=== PATIENT | male | born 1985 | race Caucasian/White ===

== ENCOUNTER → 2016-12-30 | Day surgery (SDC) | payer OTHER ==
--- NOTE | 2016-12-29 18:46 | MH ---
cc: TRAVIS BARRAGAN DATE OF ADMISSION 12/30/2016 HISTORY OF THE PRESENT ILLNESS A 31-year-old gentleman with chronic sinusitis and nasal obstruction for nasal sinus surgery including open septal reconstruction, turbinectomies and bilateral balloon and endoscopic sinus surgery. PAST MEDICAL HISTORY Unremarkable. PAST SURGICAL HISTORY Unremarkable. REVIEW OF SYSTEMS Unremarkable. FAMILY HISTORY Unremarkable. SOCIAL HISTORY Unremarkable. PHYSICAL EXAMINATION GENERAL: Well-appearing patient. No acute distress noted. HEENT: Exam reveals significant nasal septal deviation, mucopurulent exudate, chronic inflammation and turbinate hypertrophy. Oral cavity is clear. NECK: Soft and supple with no masses. LUNGS: Clear. HEART: Regular rate and rhythm. ABDOMEN: Soft and nontender. EXTREMITIES: Without cyanosis, clubbing or edema. NEUROLOGICAL: Alert, oriented, nonfocal neurologic exam. IMPRESSION Patient with chronic sinusitis and nasal obstruction for nasal sinus surgery. Instructed in method of surgery and possible complications, including anesthetic complications, cardiac difficulty, pulmonary difficulty, stroke or even . Surgical complications bleeding, infection, injury to orbit including blindness and diplopia, injury to brain including CSF leak, meningitis, brain abscess or even , in addition to septal perforation, dry nose, persistent sinusitis and some decreased sense of smell. The patient appeared to agree, accept and understand above-mentioned risks and benefits. In addition no guarantees or warranties regarding outcome will be given. We will therefore proceed with surgery. MD TAE Parham/SHAE /6:11 PM /6:41 PM
[~2016-12-30] VITALS: Ht 188 cm; Wt 122.9 kg
[~2016-12-30] MED LIST: ACETAMINOPHEN 1000 MG/100 ML VIAL IV ONE; ACETAMINOPHEN/HYDROcodone 325 MG/7.5 MG TAB PO PRN; ADDE10 PO; DO NOT ADM ANY ANTICOAGULANT DRUGS XX PRN; EPINEPHrine HCL (1:1000) 30 MG/30 ML VIAL ONE; INSULIN HUMAN REGULAR 1,000 UNITS/10 ML VIAL SQ PRN; LACTATED RINGER'S 1000 ML IV SCH; LIDOCAINE 1%/EPINEPHrine 1:100,000 SOLN 30 ML VIAL ONE; MEDR4PAK PO; METOPROLOL TARTRATE 25 MG TAB PO PRN; MORPHINE SULFATE 4 MG/ML INJ IV PUSH PRN; NEOSTIGMINE 3 MG/3 ML SYR IV ONE; OFLOXACIN 0.3% OPTH SOLN 5 ML BTL ONE; ONDANSETRON HCL 4 MG/2 ML VIAL IV PUSH ONE; ONDANSETRON HCL 4 MG/2 ML VIAL IV PUSH PRN; PREV15CA15 PO; PROPOFOL 200 MG/20 ML AMP IV ONE; SODIUM CHLORID 0.9% 500 ML IV SCH; VENTAER INH; fentaNYL CITRATE 250 MCG/5 ML AMP ONE
[2016-12-30 07:12] VITALS: BP 132/81; PULSE 71; RESP 18; TEMP 98; O2SAT 98
--- NOTE | 2016-12-30 10:00 | MP ---
cc: TRAVIS BARRAGAN DATE OF SURGERY 12/30/2016 PREOPERATIVE DIAGNOSES Nasal obstruction. Chronic sinusitis. PROCEDURE Open septal reconstruction, bilateral endoscopic frontal sinusotomy, bilateral endoscopic anterior and posterior ethmoidectomy, bilateral endoscopic maxillary antrostomy with removal of tissue, bilateral inferior turbinectomy, submucous resection. ANESTHESIA General anesthesia. ESTIMATED BLOOD LOSS Less than 100 cc. COMPLICATIONS No complications. OPERATING SURGEON Dr. Barragan OPERATION FOLLOWS Prepped and draped in the usual fashion. 1% Xylocaine with 1:100,000 epinephrine injected into nasal septum, middle meatus and inferior meatus bilaterally. 1:1000 adrenaline soaked pledgets were placed and then removed. Under endoscopic visualization, microdebrider was used to perform uncinectomy, anterior and posterior ethmoidectomy on the right side. Under endoscopic visualization, natural antrostomy identified, enlarged and polypoid tissue removed from it. Also using balloon as well as microdebrider, frontal sinus resection performed. A balloon dilation was initially performed and then the frontal sinus recess dissected with microdebrider removing bone and mucosa. A Telfa splint was placed in the right middle meatus at this time and attention turned to the left middle meatus. Under endoscopic visualization, uncinectomy performed, the natural antrostomy identified, enlarged with the microdebrider and polypoid tissue removed from it. Once this was achieved, the patient then had anterior and posterior ethmoidectomy performed with microdebrider under endoscopic visualization on the left side and natural frontal sinus recess dissection. Also balloon sinuplasty performed on the left side as well. Telfa splint placed in left middle meatus. Mucoperichondrial incision made on the left side, mucoperichondrial flap elevated. Significant amount of bone and cartilage removed to improve nasal airway and to reduce the nasal fracture. The mucoperichondrial flap was approximated. Inferior turbinate reduction submucosally was performed with the Coblator under direct and endoscopic visualization bilaterally with multiple insertions of the Coblator, probed with power Level IV. Minimal bleeding was noted. No packing placed. The patient tolerated the procedure well. MD TAE Parham/DAVID /9:33 AM /9:41 AM
[2016-12-30 11:00] VITALS: BP 141/83; PULSE 69; RESP 18; TEMP 97.7; O2SAT 97
== END | disposition home or self-care (01) ==
LOC: HSDC 06:11
PROVIDERS: ATTEND Specialist
DX: J32.9 Chronic sinusitis, unspecified (principal); J34.2 Deviated nasal septum; J34.3 Hypertrophy of nasal turbinates; J45.909 Unspecified asthma, uncomplicated
CPT/HCPCS: 00160; 30140; 30520; 31255; 31267; 31276; J0131; J0171; J2405; J2710; J3010

== ENCOUNTER 2017-05-22 10:13 | Emergency (ER) | payer OTHER ==
[~2017-05-22 10:13] MED LIST changes: -ACETAMINOPHEN 1000 MG/100 ML VIAL IV ONE; -ACETAMINOPHEN/HYDROcodone 325 MG/7.5 MG TAB PO PRN; -DO NOT ADM ANY ANTICOAGULANT DRUGS XX PRN; -EPINEPHrine HCL (1:1000) 30 MG/30 ML VIAL ONE; -INSULIN HUMAN REGULAR 1,000 UNITS/10 ML VIAL SQ PRN; -LACTATED RINGER'S 1000 ML IV SCH; -LIDOCAINE 1%/EPINEPHrine 1:100,000 SOLN 30 ML VIAL ONE; -METOPROLOL TARTRATE 25 MG TAB PO PRN; -MORPHINE SULFATE 4 MG/ML INJ IV PUSH PRN; -NEOSTIGMINE 3 MG/3 ML SYR IV ONE; -OFLOXACIN 0.3% OPTH SOLN 5 ML BTL ONE; -ONDANSETRON HCL 4 MG/2 ML VIAL IV PUSH ONE; -ONDANSETRON HCL 4 MG/2 ML VIAL IV PUSH PRN; -PROPOFOL 200 MG/20 ML AMP IV ONE; -SODIUM CHLORID 0.9% 500 ML IV SCH; -fentaNYL CITRATE 250 MCG/5 ML AMP ONE
[2017-05-22 10:25] VITALS: BP 128/77; PULSE 83; RESP 20; TEMP 98.3; O2SAT 98
[2017-05-22] MEDS ORDERED: SINUS MED (10:29)
[2017-05-22] MEDS ORDERED: SULF1SOL4 LEFT EYE (10:51)
--- NOTE | 2017-05-22 10:51 | PD ---
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 He has been flushing his eyes but still feels the foreign body sensation in that area. He denies any vision change or any other issues. Modifying Factors: None Associated Signs & Symptoms: Left eye foreign body Risk Factors: None PFSH Past Medical History Asthma: Yes Cancer: No Cardiovascular Problems: No Diabetes: No Endocrine: No Genitourinary: No Hepatitis: No Hiatal Hernia: Yes Immune Disorder: No Musculoskeletal: Yes (right and left wrist fx) Neurologic: No Psychiatric: Yes (ADHD) Reproductive: No Respiratory: Yes (ASTHMA) Thyroid Disease: No Past Surgical History Abdominal Surgery: No AICD: No Body Medical Devices: plate and screws left wrist Cardiac Surgery: No Ear Surgery: No Endocrine Surgery: No Eye Surgery: No Genitourinary Surgery: No Gynecologic Surgery: No Joint Replacement: No Oral Surgery: Yes (SINUS) Pacemaker: No Thoracic Surgery: No Other Surgery: Yes (SINUS) Social History Alcohol Use: Yes (SOCIAL) Tobacco Use: No Substance Use: No Allergies-Medications (Allergen,Severity, Reaction): Coded Allergies: No Known Allergies (Unverified , 05/22/17) Reported Meds & Prescriptions Reported Meds & Active Scripts Active Reported [Sinus Med] Prevacid (Lansoprazole) 15 Mg Capdr 15 Mg PO DAILY Adderall (Amphetamine-Dextroamphetamine) 10 Mg Tab 30 Mg PO DAILY Avoid late evening doses. Space doses at least 4 to 6 hours if more than once/day dosing. Review of Systems Except as stated in HPI: all other systems reviewed are Neg Physical Exam Narrative GENERAL: Well-nourished, well-developed young white male patient patient in no acute distress. Awake and oriented 3. SKIN: Focused skin assessment warm/dry. HEAD: Normocephalic. EYES: No scleral icterus. Mild left conjunctival injection with no drainage. There is a small brownish speck of metal notable to the left eye at the 7 o' clock position, not within the borders of the pupil. No surrounding rust spots. No corneal abrasions identified. NECK: Supple, trachea midline. No JVD or lymphadenopathy. Data Data Last Documented VS Vital Signs Date Time Temp Pulse Resp B/P Pulse Ox O2 Delivery O2 Flow Rate FiO2 05/22/17 10:25 98.3 83 20 128/77 98 MDM Medical Decision Making Medical Screen Exam Complete: Yes Emergency Medical Condition: Yes Medical Record Reviewed: Yes Differential Diagnosis Foreign body to the left cornea Narrative Course An attempt has been done to use Q-tip to remove the piece of metal but was unsuccessful. At this point, my plan would be to release the patient with follow-up to ophthalmology for removal of the metal foreign body. Return for any worsening in symptoms, pain, vision change, and as needed. The plan has discussed with the patient and he states understanding. Diagnosis Primary Impression: Foreign body of left eye Referrals: Rhiannon Bates MD Med/Other Pt SpecificInfo: Prescription(s) given Scripts Sulfacetamide Opth Drops (Bleph-10 Opth Drops)10 % Soln1 Drop LEFT EYE Q2H #1 BOTTLE Ref 0 Prov:Yajaira James MD 05/22/17 Disposition: 01 DISCHARGE HOME Condition: Stable Yajaira James MD May 22, 2017 10:51
== END 2017-05-22 11:02 | disposition home or self-care (01) ==
LOC: PHEFT 10:13
DX: T15.92XA Foreign body on external eye, part unspecified, left eye, initial encounter (principal); Z87.09 Personal history of other diseases of the respiratory system; Z87.39 Personal history of other diseases of the musculoskeletal system and connective tissue; Z86.59 Personal history of other mental and behavioral disorders; Y93.89 Activity, other specified
CPT/HCPCS: 65205